=== PATIENT | female | born 1990 | race African-American/Black ===

== ENCOUNTER 2018-04-04 18:48 | Inpatient (IN) | payer MEDICAID ==
[~2018-04-04] VITALS: Ht 160 cm; Wt 62.1 kg
[~2018-04-04 18:48] MED LIST: IBUP800T23 PO; LORTA5 PO; METH750T2 PO; TRAM50 PO
--- NOTE | 2018-04-04 19:00 | HHI.PR ---
BILLET [facility]WYER Note Note Note placed remotely, did not see pt after she left this office today. Brief pt update: see pt in the office at 9 this morning rec to present ADAN to L &D for monitoring and IOL, i also spoke to her mother separately over the phone at length about this. Full H&P dictated and pending hydrography teacher. 27-year-old at 37w2d by 14w US (CATIE 04/23/2018) 1. IUP:Pt yet to be placed on the monitor by nursing - cephalic by US today, GBS neg, - EFW (03/27) = 1744g (<1%) AC < 1%, - Male fetus. 2. IOL: secondary to #3, BS of 1 in the office, cervidil ordered, if tracing reassuring 2 hours after cervidil may eat. NPO until then. 3. IUGR: based on EFW above done for S<D. Today 04/01 BPP (NR NST and -2 breathing) however UA dop WNL today. - unsure etiology, patient is a smoker but very minimal, blood pressure normal, normal appearing anatomy, pt states did not do aneuploidy screening. 4. Tobacco use: Encouraged cessation throughout . 5. Depressive thoughts: will monitor closely , has declined psych referral and medications multiple times during . Antonio Lozano MD Apr 04, 2018 19:00
[2018-04-04] MEDS ORDERED: LACTATED RINGER'S 1000 ML INJ 1,000 ML IV PRN (19:01)
[2018-04-04] MEDS ORDERED: DINOPROSTONE 10 MG VAG INSERT VAGINAL ONE (19:15)
[2018-04-04] MEDS ORDERED: OXYTOCIN 30 UNITS-500ML PREMIX 500 ML IV ONE (19:15)
[2018-04-04] MEDS ORDERED: LIDOCAINE HCL 1% 50 ML VIAL INFIL PRN (19:15)
[2018-04-04] MEDS ORDERED: SODIUM CHLORIDE 0.9% FLUSH 10 ML FLUSH IV FLUSH PRN (19:15)
[2018-04-04] MEDS ORDERED: MINERAL OIL 10 ML VIAL TOPICAL PRN (19:15)
[2018-04-04] MEDS ORDERED: CITRIC ACID-SODIUM CITRATE LIQ 30 ML UDC PO SCH (19:15)
[2018-04-04] MEDS ORDERED: SODIUM CHLORID 0.9% 500 ML INJ 500 ML IV PRN (19:15)
[2018-04-04] MEDS ORDERED: LIDOCAINE HCL 1% 50 ML VIAL I-DERMAL PRN (19:15)
[2018-04-04 19:20] VITALS: RESP 15; TEMP 98.5
[2018-04-04 19:21] VITALS: BP 114/65; PULSE 80
[2018-04-04] MEDS ORDERED: SODIUM CHLOR 0.9% 1000 ML INJ 1,000 ML IV PRN (19:21)
[2018-04-04 20:39] LABS: AUTOMATED NEUTROPHIL # 7.5 TH/MM3 (1.8-7.7); BASOPHIL # 0.1 TH/MM3 (0-0.2); BASOPHIL % 0.5 % (0.0-2.0); EOSINOPHIL # 0.1 TH/MM3 (0-0.4); EOSINOPHIL % 0.7 % (0.0-4.0); HEMATOCRIT 33.3 % (35.0-46.0); LYMPH % 22.6 % (9.0-44.0); LYMPHOCYTE # 2.4 TH/MM3 (1.0-4.8); MEAN CORPUSCULAR HGB CONC 32.9 % (32.0-36.0); MEAN PLATELET VOLUME 9.1 FL (7.0-11.0); MONO % 6.8 % (0.0-8.0); MONOCYTE # 0.7 TH/MM3 (0-0.9); NEUT % 69.4 % (16.0-70.0); PLATELET COUNT 284 TH/MM3 (150-450); RED BLOOD COUNT 3.79 MIL/MM3 (4.00-5.30); RED CELL DISTRIBUTION WIDTH 14.2 % (11.6-17.2); WHITE BLOOD COUNT 10.7 TH/MM3 (4.0-11.0)
[2018-04-04 21:00] LABS: BILIRUBIN, URINE NEG (NEG); BLOOD, URINE NEG (NEG); GLUCOSE,URINE NEG (NEG); KETONE, URINE NEG (NEG); MUCUS URINE FEW /lpf (OCC); NITRITE,URINE NEG (NEG); PH, URINE 6.5 (5.0-8.5); SQUAMOUS EPITHELIAL CELL URINE 15 /hpf (0-5); URINE COLOR YELLOW (YELLW/STRAW); URINE LEUKOCYTE ESTERASE TRACE (NEG)
[2018-04-04] MEDS: SODIUM CHLORIDE 0.9% FLUSH 10 ML FLUSH IV FLUSH SCH (21:00)
[2018-04-04 23:29] VITALS: BP 114/68; PULSE 59
[2018-04-04 23:30] VITALS: RESP 16; TEMP 98.4
[2018-04-05] VITALS (12 sets, daily range): BP systolic 105–142; BP diastolic 51–93; PULSE 52–106; RESP 0–20; TEMP 97.5–98.1; O2SAT 97–100
[2018-04-05] MEDS ORDERED: LACTATED RINGER'S 1000 ML IV ONE (05:15)
[2018-04-05] MEDS ORDERED: CLINDAMYCIN 600 MG/NS 100 ML IV SCH ×2 (05:15)
[2018-04-05] MEDS ORDERED: CITRIC ACID-SODIUM CITRATE LIQ 30 ML UDC PO SCH (05:15)
[2018-04-05] MEDS ORDERED: LACTATED RINGER'S 1000 ML IV SCH (05:15)
[2018-04-05] MEDS ORDERED: ACETAMINOPHEN 1000 MG/100 ML 100 ML IV ONE (05:20)
[2018-04-05] MEDS ORDERED: MORPHINE SULFATE PF 5 MG/10 ML VIAL ONE (05:20)
[2018-04-05] MEDS ORDERED: CLINDAMYCIN PHOS 600 MG/4 ML VIAL ONE (05:31)
[2018-04-05] MEDS ORDERED: MORPHINE SULFATE PF 5 MG/10 ML VIAL IT ONE (05:45)
--- NOTE | 2018-04-05 05:52 | PD.LABORPN ---
Subjective Subjective 37 week gestation with IUGR for IOL due to nonreasuring BPP, had cervidil placed @21:00. FHR tracing has had episodes of variable decels that resolved @01:30 then became repepative @0400. Objective Vital Signs Vital Signs Date Time Temp Pulse Resp B/P (MAP) Pulse Ox O2 Delivery O2 Flow Rate FiO2 04/05/18 03:57 15 04/05/18 03:55 98.0 04/05/18 03:55 80 114/84 (94) 04/05/18 02:00 0 04/04/18 23:30 98.4 16 04/04/18 23:29 59 114/68 (83) Objective Pelvic Exam: Cervix: [-] Dilatation: FT Effacement: [-] Station: -2 Presentation: vtx Membranes: [intact Uterine Contractions: rare FHT's: Category: 2 Variability: minimal; occasional accel. Decels: y Weeks Gestation: 37 Gest Age Assessed Date: Apr 05, 2018 Gest Age Assessed Time: 10:00 Pt started active labor?: No Medical induction of labor?: Yes Medical induction start date: Apr 04, 2018 Medical induction start time: 21:00 Artificial rupture of membrane: No Assessment/Plan Assessment and Plan 37+ with IUGR, IOL with CAT 2 tracing. episodic deep variables with decreased variability; Hx of smoking. Patient has refused operative delivery despite concerns for hypoxia and distress. FHT currently is CAT 2, and after long discussion she has agreed to a CD. Will proceed with primary section Rigo Fernández MD Apr 05, 2018 05:52
--- NOTE | 2018-04-05 06:44 | PD.OB.DELI ---
Procedure Note Section Procedure Performed by Rigo Fernández Procedure: Primary Low Transverse Sec Indication for delivery: Nonreassuring heart tracing Informed consent obtained: For anesthesia, For procedure Confirmed correct: Patient, Procedure, Site, Time-out taken Anesthesia: Spinal Medication prior to procedure: As documented in eMAR Monitoring during procedure: Blood pressure monitoring, surveillance monitor, doppler, Pulse oximetry Urinary catheter: Inserted using sterile technique, To dependent drainage Sterile preparation: Duraprep, In usual fashion Position: Supine with wedge to right side, Supine with safety belt applied Operative Features Skin Incision: Pfannenstiel Uterine Incision: Low transverse w/knife / scissors Membranes Ruptured: Artificially Presentation: Occiput anterior Delivery date: Apr 05, 2018 Delivery time: 06:10 Delivery of : Assisted (Kiwi Vacuum x1 pull) Infant: Male One Minute : 8 Five Minute : 9 Weight: 3# 15oz Status of infant: Viable, Cord blood (ABG ph7.28), Umbilical cord, Nursery present Placenta delivered: Intact Medications: Antibiotics, Oxytocin Estimated blood loss: 500cc Procedure tolerated: Well Maternal Condition: Stable Condition: Stable Rigo Fernández MD Apr 05, 2018 06:44
[2018-04-05] MEDS ORDERED: OXYTOCIN 30 UNITS-500ML PREMIX 500 ML ONE ×2 (06:49→07:07)
--- NOTE | 2018-04-05 07:10 | MP ---
cc: Rigo Fernández MD DATE OF OPERATION: 04/05/2018 PREOPERATIVE DIAGNOSES: 1. The patient presented for induction of labor due to nonreassuring surveillance with intrauterine growth restriction at 37 weeks and 2 days. 2. Nonreassuring heart rate tracing. 3. Maternal smoking history. PROCEDURE PERFORMED: Primary low transverse section, delivery of viable male infant. POSTOPERATIVE DIAGNOSES: 1. The patient presented for induction of labor due to nonreassuring surveillance with intrauterine growth restriction at 37 weeks and 2 days. 2. Nonreassuring heart rate tracing. 3. Maternal smoking history. SURGEON: Rigo Fernández MD ANESTHESIA: Spinal. ESTIMATED BLOOD LOSS: 500 mL. DRAINS: Henderson to gravity. OPERATIVE FINDINGS: Male infant delivered with the vacuum extractor using a Kiwi 1 simple pull. Baby had good tone and cry upon the operative field. Delayed cord clamping for 45 seconds was initiated. Baby had reassuring respiratory function. FINDINGS: Baby weighed 3 pounds 15 ounces. Apgars were 8 at 1 minute and 9 at 5. Cord blood gases obtained with the pH measuring 7.28. INDICATIONS FOR PROCEDURE: The patient was brought in for concerns for growth restriction, nonreassuring heart rate tracing, and biophysical profile. The patient developed intermittent deep variables. Cervidil, which was used and placed around 9 p.m. on 04/04/2018, was removed. The variables resolved. heart rate tracing then declined and became nonreassuring with repetitive deep variables and minimal variability. At that point, section was discussed. The patient initially declined and was resistant to operative delivery. After discussion in regards to the wellbeing of the infant, the patient agreed to proceed with delivery. heart tracing had improved during that time. PROCEDURE: The patient received clindamycin due to PENICILLIN ALLERGY IV. She underwent spinal anesthetic with good result. She was prepped and draped. Henderson was previously inserted by sterile technique and she had sequential was placed on the lower extremities for VTE prophylaxis. After she was prepped and draped, timeout was conducted and agreed by all present in the room. The patient demonstrated excellent pain management and was alert throughout the procedure. A Pfannenstiel incision was used to taking it through the skin down to the subcutaneous layer to the fascia, which was scored in the midline and extended laterally by sharp dissection and then dissecting it away from the rectus muscle allowing entry into the peritoneal cavity in the midline, and then extending the incision to accommodate the bladder blade. A transverse incision was made in the lower uterine segment, allowing the perineum to fall away at the level of the bladder reflection. Clear fluid was noted upon entering the uterine cavity. The incision was extended. Infant was then delivered with the aid of a vacuum extractor and then the infant was delivered in total. Delayed cord clamping times 45 seconds was initiated. The baby had good tone and cry, and vigorous breathing activity. Cord was doubly clamped and cut. The was taken to the [place] by the nursery staff present. The cord, segment was isolated and clamped for cord blood gas assessment and then a cord sample was obtained for typing. The placenta was removed intact and sent to pathology for evaluation. Uterus was explored. There was no retained tissue. Good hemostasis was noted. The uterine closure was made with a double layer, first layer was a running locking suture, followed by a second imbricating suture of 0 Monocryl. The pelvis was irrigated. No active bleeding was noted. Examination of the pelvic anatomy was normal. The peritoneum was then closed with a running suture of 2-0 Monocryl. The muscle was reapproximated with interrupted suture of 2-0 Monocryl, and then the fascia was closed with 0 Vicryl in a simple running fashion. Subcutaneous layer was irrigated and active bleeding was cauterized and the space was reapproximated with a running suture of 2-0 Monocryl. Bruner were used to reapproximate the skin edge and a dressing was applied. At the end of the case, final count was correct. The patient was stable. was taken to the NICU due to birthweight, otherwise was stable, Rigo Fernández MD SJMelony/STALIN , 06:51 AM , 07:09 AM
--- NOTE | 2018-04-05 08:04 | MH ---
cc: Antonio Lozano MD DATE OF ADMISSION: 04/04/2018 CHIEF COMPLAINT: Admission for induction of labor. HISTORY OF PRESENT ILLNESS: This patient is a 27-year-old G2, P0-0-1-0 at 37 weeks and 2 days by 14-week ultrasound with estimated due date of 04/23/2018, seen in the office today for routine OB visit, she has been followed for growth restriction diagnosed on 03/27/2018 with unknown etiology. Today a BPP was 6/10, -2 for breathing and a nonreactive NST. Based on her gestational age, a plan was made for induction of labor today. The patient has no complaints today, feels somewhat anxious about her induction. PAST MEDICAL HISTORY: Tobacco use. MEDICINES: vitamins. ALLERGIES: PENICILLIN. OBSTETRICAL HISTORY: 1. G2, P0-0-1-0. 2. Spontaneous in first trimester in May 2017. CREW CALLER HISTORY: LMP 07/26/2017. STD HISTORY: None. HISTORY OF ABNORMAL PAPS: None. SOCIAL HISTORY: Smokes tobacco. Denies alcohol or illicit drug use. Father of the baby, Fabricio, is involved. PAST SURGICAL HISTORY: None. PHYSICAL EXAM: VITAL SIGNS: Today in the office, blood pressure 120/70. GENERAL: Alert and oriented x 3 resting in the bed. CARDIOVASCULAR: Regular rate and rhythm. No murmurs, rubs or gallops. LUNGS: Clear to auscultation bilaterally. No wheezes, crackles or rhonchi. ABDOMEN: Soft, gravid, nontender. GENITOURINARY: Normal external female genitalia. Cervix closed, thick, high, mid position, firm consistency. EXTREMITIES: No clubbing, cyanosis or edema. LABORATORY DATA: Ultrasound today, cephalic, BILL 14, 6/8 BPP -2 for breathing. Placenta posterior. Normal uterine artery Doppler's. LABS: 09/25/2017, blood type A positive, antibody negative, hemoglobin 12.8, normal Pap smear. Varicella nonimmune, rubella immune, VDRL nonreactive. Urine culture stated as abnormal. Hepatitis B surface antigen negative. HIV negative, cystic fibrosis screen negative, sickle cell negative. Baseline platelets 305. Gonorrhea and chlamydia negative. Repeat blood work on 01/25/2018, hemoglobin 12.5. I did not do a 1 hour, but 2-hour Glucola fasting 60, one hour 160, two hour 126. GBS negative on 03/28/2018. ASSESSMENT AND PLAN: 1. This patient is a 27-year-old G2, P0-0-1-0 at 37 weeks and 2 days by 14-week ultrasound with estimated due date of 04/23/2018 here for admission and induction of labor for nonreassuring testing in the setting of growth restriction. 2. . Will be placed on monitoring at the time of admission. Any addendum or changes to her HPI, physical exam or plan will be added as an addendum to the H and P. Cephalic by ultrasound today, GBS negative, estimated weight on 03/27/2018 is 1744 grams less than the 1st percentile, abdominal circumference less than the 1st percentile. 3. Induction of labor. Pandya score of 1 based on growth restriction. We will plan for Cervidil. Discussed likely prolonged induction, increased risk of distress, possible needing . The patient verbalized understanding. 4. growth restriction: Diagnosed on 03/27/2018 with estimated weight of 1744 grams less than the 1st percentile and an abdominal circumference less than the 1st percentile. 6/10 BPP today with nonreactive NST and -2 for breathing, normal uterine artery Doppler's. Unknown etiology could be constitutionally small, denies any known results or screening for aneuploidy. Had a normal anatomy ultrasound. 5. Tobacco use, I have encouraged cessation throughout the . 6. Depressive thoughts. We will continue to monitor . The patient had declined any medical or psychiatric intervention throughout her . 7. : The patient likely desires to breast feed, as a male fetus unsure if she desires circumcision. MD KARRI Vela/STALIN , 09:50 AM , 10:17 AM YESENIA
[2018-04-05] MEDS ORDERED: EPIDURAL-NO SYSTEMIC NARCOTICS PRN (09:30)
[2018-04-05] MEDS ORDERED: EPIDURAL-DIPHENHYDRAMINE HCL 50 MG CAP PO PRN (09:30)
[2018-04-05] MEDS ORDERED: EPIDURAL-NALOXONE HCL 0.4 MG/ML AMP IV PUSH PRN (09:30)
[2018-04-05] MEDS ORDERED: EPIDURAL-DIPHENHYDRAMINE HCL 50 MG/ML VIAL IV PUSH PRN (09:30)
[2018-04-05] MEDS ORDERED: EPIDURAL-DO NOT ADMINISTER ANTICOAGULANTS PRN (09:30)
[2018-04-05] MEDS: SODIUM CHLORIDE 0.9% FLUSH 10 ML FLUSH IV FLUSH SCH (10:52)
[2018-04-05] MEDS ORDERED: ePHEDrine/NS 25 MG/5 ML SYRINGE IV ONE (12:00)
[2018-04-05] MEDS ORDERED: ONDANSETRON HCL 4 MG/2 ML VIAL IV ONE (12:00)
[2018-04-05] MEDS ORDERED: PHENYLEPH/NS 1000 MCG/10 ML SYR IV ONE (12:00)
[2018-04-05] MEDS ORDERED: OXYTOCIN 10 UNIT/ML AMP IV ONE (12:00)
[2018-04-05] MEDS ORDERED: KETOROLAC TROMETHAMINE 30 MG/ML (IVP) VIAL IV PUSH ONE (12:00)
[2018-04-05] MEDS ORDERED: DEXAMETHASONE SOD PHOS 4 MG/ML VIAL IV ONE (12:00)
[2018-04-05] MEDS ORDERED: LACTATED RINGER'S 1000 ML INJ 1,000 ML IV ONE (12:00)
[2018-04-05] MEDS ORDERED: ONDANSETRON ODT 4 MG TAB PO PRN (12:45)
[2018-04-05] MEDS ORDERED: SODIUM CHLORIDE 0.9% FLUSH 10 ML FLUSH IV FLUSH PRN (12:45)
[2018-04-05] MEDS ORDERED: OXYTOCIN 30 UNITS-500ML PREMIX 500 ML IV ONE (12:45)
[2018-04-05] MEDS: LACTATED RINGER'S 1000 ML INJ 1,000 ML IV SCH (13:27)
[2018-04-05] MEDS ORDERED: OXYTOCIN 30 UNITS-500ML PREMIX 500 ML IV PRN (17:45)
--- NOTE | 2018-04-05 19:14 | HHI.DCPOC ---
Discharge Care Plan Diagnosis: (1) delivery delivered (2) IUGR (intrauterine growth restriction) (3) 37 weeks gestation of Your Health Problems Are: delivery Report Symptoms to Your Doctor -Temperature above 100.5 degrees -Redness, of incision or excessive or foul smelling drainage -Unusual pain or calf pain -Increased vaginal bleeding -Painful or difficulty urinating -Feelings of extreme sadness or anxiety after 2 weeks Goals to Promote Your Health * To prevent worsening of your condition and complications * To maintain your health at the optimal level Directions to Meet Your Goals Take your medications as prescribed Follow your dietary instruction Follow activity as directed Ensure plenty of rest for recovery Drink fluids for hydration Keep your appointments as scheduled Take your immunizations and boosters as scheduled If your symptoms worsen call your PCP, if no PCP go to Urgent Care Center or Emergency Room Smoking is Dangerous to Your Health. Avoid second hand smoke Call the 24-hour crisis hotline for domestic abuse at Antonio Lozano MD Apr 05, 2018 19:14
[2018-04-05] MEDS: oxyCODONE/ACETAMINOPHEN 5 MG/325 MG TAB PO PRN (19:52)
[2018-04-05] MEDS: IBUPROFEN 600 MG TAB PO PRN (19:52)
[2018-04-06] MEDS: oxyCODONE/ACETAMINOPHEN 5 MG/325 MG TAB PO PRN ×5 (02:21→23:24)
[2018-04-06] MEDS: IBUPROFEN 600 MG TAB PO PRN ×4 (02:21→23:23)
[2018-04-06] MEDS: LACTATED RINGER'S 1000 ML INJ 1,000 ML IV SCH (02:22)
[2018-04-06 04:00] VITALS: BP 114/76; PULSE 90; RESP 18; TEMP 98.3; O2SAT 96
[2018-04-06] MEDS ORDERED: PERC5TAB12 PO (06:48)
[2018-04-06] MEDS ORDERED: IBUP-232 PO (06:48)
--- NOTE | 2018-04-06 07:18 | HHI.OB ---
Subjective Post Operative Day: 1 Remarks Patient doing well, pain fairly well controlled, vaginal bleeding less than menses, voiding, ambulating without difficulty. in the NICU. Patient feels very frustrated about her care lack of communication. She believes she is not prepared for a and feels somewhat depressed. She states she has a history of depression but has never been on medication and uses marijuana counseling to help. She is also concerned that Department of medical social consultant was notified based on her positive marijuana drug screen. I explained to her the risk factors and complications mostly growth restriction in her tobacco use that made her higher risk for distress during labor, Patient denies any suicidal or homicidal ideations, has never been on medication. I explained to her that it is standard protocol for DSS to be notified and if there is no concern or prior history that there is typically no repercussions. Objective Vitals/I&O Vital Signs Date Time Temp Pulse Resp B/P (MAP) Pulse Ox O2 Delivery O2 Flow Rate FiO2 04/06/18 04:00 98.3 90 18 114/76 (89) 96 04/05/18 23:00 98.1 58 18 142/81 (101) 98 04/05/18 20:00 106 20 105/74 (84) 97 04/05/18 20:00 97.7 04/05/18 12:30 138/93 (108) 04/05/18 12:30 97.5 62 16 100 04/05/18 08:45 97.5 16 100 04/05/18 08:45 53 127/84 (98) 04/05/18 07:44 52 16 135/51 (79) 100 04/05/18 07:30 59 18 125/78 (94) 100 Result Diagram: 04/04/181949 Objective Remarks GENERAL: Well-nourished, well-developed patient. CARDIOVASCULAR: Regular rate and rhythm without murmurs, gallops, or rubs. RESPIRATORY: Breath sounds equal bilaterally. No accessory muscle use. ABDOMEN/GI: Abdomen soft, non-tender, bowel sounds present. Dressing: Clean, dry and intact. Fundus: Firm, non-tender at umbilicus. GENITOURINARY: Light to moderate bleeding. EXTREMITIES: No cyanosis or edema, non-tender, without signs of DVT. Medications and IVs Current Medications Medications (Trade) Dose Ordered Sig/Tiny Route Start Time Stop Time Status Last Admin Lactated Ringer's 1,000 ml @ 100 mls/hr Q10H IV 04/05/18 17:39 04/06/18 13:38 04/06/18 02:22 Oxytocin 500 ml @ 100 mls/hr UNSCH X1 PRN IV 04/05/18 17:45 04/06/18 17:44 (NS Flush) 2 ml BID IV FLUSH 04/05/18 21:00 (NS Flush) 2 ml UNSCH PRN IV FLUSH 04/05/18 12:45 (Mylicon Chew) 80 mg QID PRN PO 04/05/18 12:45 (Motrin) 600 mg Q6H PRN PO 04/05/18 12:45 04/06/18 02:21 (Percocet 5-325 Mg) 1 tab Q4H PRN PO 04/05/18 12:45 04/06/18 02:21 (Percocet 5-325 Mg) 2 tab Q4H PRN PO 04/05/18 12:45 (Radha-Colace) 2 tab Q12H PRN PO 04/05/18 12:45 (M-M-R Ii Inj) 0.5 ml ONCE ONCE SQ 04/06/18 16:00 04/06/18 16:01 (Boostrix Inj) 0.5 ml ONCE ONCE IM 04/06/18 16:00 04/06/18 16:01 (Zofran Odt) 4 mg Q6H PRN PO 04/05/18 12:45 Assessment/Plan Assessment and Plan 27-year-old status post primary low transverse at 37 weeks and 2 days secondary to nonreassuring heart tones. Patient was induction of labor for growth restriction 1. Postoperative day #1: Afebrile, vital signs stable, postoperative hemoglobin pending. Anticipate discharge home in the next 48 hours. 2. Tobacco and marijuana use: Patient bottle feeding, provided nicotine patch to curve cravings. Pt Typically smokes 2-3 cigarettes per day. 3. Depressed thoughts / Depression: Discussed risks and benefits of SSRI, will begin Zoloft 50 mg daily. Antonio Lozano MD Apr 06, 2018 07:18
[2018-04-06] MEDS ORDERED: ZOLO50TA PO (07:43)
[2018-04-06 08:00] VITALS: BP 129/85; PULSE 72; RESP 20; O2SAT 98
[2018-04-06] MEDS ORDERED: NICOTINE 7 MG/24 HR PATCH T-DERMAL ONE (08:00)
[2018-04-06] MEDS: DOCUSATE SODIUM 50 MG/SENNA 8.6 MG TAB PO PRN (08:13)
[2018-04-06] MEDS: SERTRALINE HCL 50 MG TAB PO SCH (08:13)
[2018-04-06] MEDS: SODIUM CHLORIDE 0.9% FLUSH 10 ML FLUSH IV FLUSH SCH (08:13)
[2018-04-06 09:26] LABS: HEMATOCRIT 33.4 % (35.0-46.0); MEAN CORPUSCULAR HEMOGLOBIN 28.9 PG (27.0-34.0); MEAN CORPUSCULAR HGB CONC 32.9 % (32.0-36.0); MEAN PLATELET VOLUME 8.5 FL (7.0-11.0); PLATELET COUNT 229 TH/MM3 (150-450); RED BLOOD COUNT 3.79 MIL/MM3 (4.00-5.30); WHITE BLOOD COUNT 14.4 TH/MM3 (4.0-11.0)
[2018-04-06] MEDS ORDERED: DIPHTH/TETANUS/ACEL PERTUSSIS (BOOSTER) 0.5 ML VIAL/PFS IM ONE (16:00)
[2018-04-06] MEDS ORDERED: MEASLES, MUMPS, RUBELLA VACCINE 0.5 ML VIAL SQ ONE (16:00)
[2018-04-06 20:38] VITALS: BP 108/74; PULSE 70; RESP 18; TEMP 97.7
[2018-04-07] MEDS: IBUPROFEN 600 MG TAB PO PRN ×3 (04:44→18:28)
[2018-04-07] MEDS: oxyCODONE/ACETAMINOPHEN 5 MG/325 MG TAB PO PRN ×4 (04:44→22:28)
[2018-04-07 07:37] VITALS: BP 111/78; PULSE 73; RESP 18; TEMP 97.7; O2SAT 99
--- NOTE | 2018-04-07 08:16 | HHI.OB ---
Subjective Post Operative Day: 2 Remarks Patient states she is doing much better than yesterday, pain is controlled, bleeding less than menses, ambulating, voiding without difficulty. still in NICU she states is doing well. Objective Vitals/I&O Vital Signs Date Time Temp Pulse Resp B/P (MAP) Pulse Ox O2 Delivery O2 Flow Rate FiO2 04/07/18 07:37 97.7 73 18 111/78 (89) 99 04/06/18 20:38 97.7 70 18 108/74 (85) Result Diagram: 04/06/18 0908 Objective Remarks GENERAL: Well-nourished, well-developed patient. CARDIOVASCULAR: Regular rate and rhythm without murmurs, gallops, or rubs. RESPIRATORY: Breath sounds equal bilaterally. No accessory muscle use. ABDOMEN/GI: Abdomen soft, non-tender, bowel sounds present. Dressing: Did not visualize incision patient partyly sleeping in bed, did not assess fundus GENITOURINARY: Light to moderate bleeding. EXTREMITIES: No cyanosis or edema, non-tender, without signs of DVT. Medications and IVs Current Medications Medications (Trade) Dose Ordered Sig/Tiny Route Start Time Stop Time Status Last Admin (NS Flush) 2 ml BID IV FLUSH 04/05/18 21:00 04/06/18 08:13 (NS Flush) 2 ml UNSCH PRN IV FLUSH 04/05/18 12:45 (Mylicon Chew) 80 mg QID PRN PO 04/05/18 12:45 (Motrin) 600 mg Q6H PRN PO 04/05/18 12:45 04/07/18 04:44 (Percocet 5-325 Mg) 1 tab Q4H PRN PO 04/05/18 12:45 04/06/18 13:30 (Percocet 5-325 Mg) 2 tab Q4H PRN PO 04/05/18 12:45 04/07/18 04:44 (Radha-Colace) 2 tab Q12H PRN PO 04/05/18 12:45 04/06/18 08:13 (Zofran Odt) 4 mg Q6H PRN PO 04/05/18 12:45 (Zoloft) 50 mg DAILY PO 04/06/18 09:00 04/06/18 08:13 (Habitrol 7 Mg Patch.24 Hr) 1 patch DAILY T-DERMAL 04/07/18 09:00 UNV Miscellaneous Information 1 DAILY T-DERMAL 04/07/18 09:00 UNV Assessment/Plan Assessment and Plan 27-year-old status post primary low transverse at 37 weeks and 2 days secondary to nonreassuring heart tones. Patient was induction of labor for growth restriction 1. Postoperative day #2: Afebrile, vital signs stable, postoperative hemoglobin pending. Anticipate discharge home tomorrow. 2. Tobacco and marijuana use: continue icotine patch to curve cravings. Pt Typically smokes 2-3 cigarettes per day. 3. Depression: started Zoloft 50 mg daily, yesterday, mood stable today. Sent with Rx. 4. Elevated blood pressure: Occasional isolated mild range blood pressures, no signs or symptoms of preeclampsia. Discussed preeclampsia precautions after discharge home. Antonio Lozano MD Apr 07, 2018 08:16
[2018-04-07] MEDS: NICOTINE 7 MG/24 HR PATCH T-DERMAL SCH (10:23)
[2018-04-07] MEDS: SERTRALINE HCL 50 MG TAB PO SCH (10:23)
[2018-04-07] MEDS: SODIUM CHLORIDE 0.9% FLUSH 10 ML FLUSH IV FLUSH SCH (10:24)
[2018-04-07] MEDS: SIMETHICONE 80 MG CHEWABLE TAB PO PRN (18:27)
[2018-04-07] MEDS: DOCUSATE SODIUM 50 MG/SENNA 8.6 MG TAB PO PRN (18:28)
[2018-04-07 21:00] VITALS: BP 110/60; PULSE 68; RESP 18; TEMP 98.1
[2018-04-08] MEDS: oxyCODONE/ACETAMINOPHEN 5 MG/325 MG TAB PO PRN ×2 (04:39→09:20)
[2018-04-08] MEDS: IBUPROFEN 600 MG TAB PO PRN (04:39)
[2018-04-08 07:30] VITALS: BP 112/75; PULSE 83; RESP 18; TEMP 98.2
[2018-04-08] MEDS ORDERED: NICO7DIS2 T-DERMAL (08:29)
--- NOTE | 2018-04-08 08:32 | HHI.OB ---
Subjective Post Operative Day: 3 Remarks doing well, pain controlled, ambulating, voiding, tolerating diet. Breast pumping successfully Objective Vitals/I&O Vital Signs Date Time Temp Pulse Resp B/P (MAP) Pulse Ox O2 Delivery O2 Flow Rate FiO2 04/07/18 21:00 98.1 04/07/18 21:00 68 18 110/60 (77) Result Diagram: 04/06/18 09 Objective Remarks GENERAL: Well-nourished, well-developed patient. CARDIOVASCULAR: Regular rate and rhythm without murmurs, gallops, or rubs. RESPIRATORY: Breath sounds equal bilaterally. No accessory muscle use. ABDOMEN/GI: Abdomen soft, non-tender, bowel sounds present. Incision clean dry and intact with nasima. GENITOURINARY: Light to moderate bleeding. EXTREMITIES: No cyanosis or edema, non-tender, without signs of DVT. Medications and IVs Current Medications Medications (Trade) Dose Ordered Sig/Tiny Route Start Time Stop Time Status Last Admin (NS Flush) 2 ml BID IV FLUSH 04/05/18 21:00 04/06/18 08:13 (NS Flush) 2 ml UNSCH PRN IV FLUSH 04/05/18 12:45 (Mylicon Chew) 80 mg QID PRN PO 04/05/18 12:45 04/07/18 18:27 (Motrin) 600 mg Q6H PRN PO 04/05/18 12:45 04/08/18 04:39 (Percocet 5-325 Mg) 1 tab Q4H PRN PO 04/05/18 12:45 04/06/18 13:30 (Percocet 5-325 Mg) 2 tab Q4H PRN PO 04/05/18 12:45 04/08/18 04:39 (Radha-Colace) 2 tab Q12H PRN PO 04/05/18 12:45 04/07/18 18:28 (Zofran Odt) 4 mg Q6H PRN PO 04/05/18 12:45 (Zoloft) 50 mg DAILY PO 04/06/18 09:00 04/07/18 10:23 (Habitrol 7 Mg Patch.24 Hr) 1 patch DAILY T-DERMAL 04/07/18 09:00 04/07/18 10:23 Miscellaneous Information 1 DAILY T-DERMAL 04/08/18 09:00 Assessment/Plan Assessment and Plan 27-year-old status post primary low transverse at 37 weeks and 2 days secondary to nonreassuring heart tones. Patient was induction of labor for growth restriction 1. Postoperative day #3: Afebrile, vital signs stable, doing well, discharge home today, discussed expectations, precautions and follow-up. Remove nasima by nursing and replaced with Steri-Strips prior to discharge -Male in NICU 2. Tobacco and marijuana use: continue nicotine, Rx given for this, Pt Typically smokes 2-3 cigarettes per day. 3. Depression: continue Zoloft 50 mg daily, yesterday, mood stable today. Sent with Rx. 4. Elevated blood pressure: Occasional isolated mild range blood pressures, no signs or symptoms of preeclampsia. Discussed preeclampsia precautions after discharge home. Antonio Lozano MD Apr 08, 2018 08:32
[2018-04-08] MEDS ORDERED: REMOVE OLD PATCH T-DERMAL SCH (09:00)
[2018-04-08] MEDS: SERTRALINE HCL 50 MG TAB PO SCH (09:19)
[2018-04-08] MEDS: DOCUSATE SODIUM 50 MG/SENNA 8.6 MG TAB PO PRN (09:19)
[2018-04-08] MEDS: SIMETHICONE 80 MG CHEWABLE TAB PO PRN (09:19)
[2018-04-08] MEDS: NICOTINE 7 MG/24 HR PATCH T-DERMAL SCH (09:20)
== END 2018-04-08 10:00 | disposition home or self-care (01) | DRG 765 ==
LOC: H2EB 18:48 → H1EA 04-05 08:32
PROVIDERS: ADMIT Obstetrics & Gynecology; ATTEND Obstetrics & Gynecology
PROC: 3E0P7VZ Introduction of Hormone into Female Reproductive, Via Natural or Artificial Opening (ICD-10-PCS; 2018-04-04)
PROC: 10D00Z1 Extraction of Products of Conception, Low, Open Approach (ICD-10-PCS; principal; 2018-04-05)
DX: O36.5930 Maternal care for other known or suspected poor fetal growth, third trimester, not applicable or unspecified (principal); O99.324 Drug use complicating childbirth; Z37.0 Single live birth; Z3A.37 37 weeks gestation of pregnancy; O99.334 Smoking (tobacco) complicating childbirth; O76 Abnormality in fetal heart rate and rhythm complicating labor and delivery; O99.344 Other mental disorders complicating childbirth; R03.0 Elevated blood-pressure reading, without diagnosis of hypertension; F12.90 Cannabis use, unspecified, uncomplicated; F32.9 Major depressive disorder, single episode, unspecified; F17.200 Nicotine dependence, unspecified, uncomplicated; Z88.0 Allergy status to penicillin
CPT/HCPCS: 80307; 81001; 85025; 85027; 86900; 86901; 88307; J0131; J1100; J1885; J2274; J2370; J2405; J2590; J7120